=== PATIENT | female | born 1985 | race American Indian/Alaskan Native ===

== ENCOUNTER 2017-07-09 22:17 | Emergency (ER) | payer BC ==
[2017-07-10] MEDS ORDERED: LEVOPHED DRIP 4 MG/NS 250 ML 4 MG/250 ML BAG IV ONE (02:08)
[2017-07-10 02:26] LABS: Basophils % (Auto) 0.2 % (0.0-1.8); Eosinophils % (Auto) 0.7 % (0.0-4.3); Hematocrit 36.6 % (30.3-42.9); Hemoglobin 12.3 gm/dl (10.1-14.3); Mean Corpuscular HGB Conc 34 % (30-34); Mean Corpuscular Hemoglobin 28 pg (28-32); Mean Corpuscular Volume 84 fl (79-97); Platelet Count 273 K/mm3 (140-440); Red Blood Count 4.39 M/mm3 (3.65-5.03); Red Cell Distribution Width 13.9 % (13.2-15.2); White Blood Count 12.4 K/mm3 (4.5-11.0)
[2017-07-10 03:01] LABS: Alanine Aminotransferase 5 units/L (7-56); Albumin 3.6 g/dL (3.9-5); Alkaline Phosphatase 73 units/L (35-129); Anion Gap 16 mmol/L; BUN/Creatinine Ratio 17; Blood Urea Nitrogen 10 mg/dL (7-17); Calcium 9.2 mg/dL (8.4-10.2); Carbon Dioxide 24 mmol/L (22-30); Chloride 97.8 mmol/L (98-107); Glucose 87 mg/dL (65-100); Lipase 19 units/L (13-60); Potassium 4.1 mmol/L (3.6-5.0); Sodium 134 mmol/L (137-145); Total Protein 7.1 g/dL (6.3-8.2)
[2017-07-10 04:25] LABS: Bacteria,Urine 2+ /HPF (Negative); Bilirubin,Urine NEG (Negative); Blood,Urine MOD (Negative); Ketones,Urine TR mg/dL (Negative); Leukocyte Esterase,Urine LG (Negative); Mucus,Urine 1+ /HPF; Nitrite,Urine NEG (Negative); Protein,Urine <15 mg/dL mg/dL (Negative)
[2017-07-10 06:01] VITALS: BP 126/83
--- NOTE | 2017-07-10 10:37 | Event Note ---
Date: 07/10/17 no answer in wr
== END 2017-07-10 12:10 | disposition left against medical advice (07) ==
LOC: ED 22:17
DX: R10.9 Unspecified abdominal pain (principal); Z53.21 Procedure and treatment not carried out due to patient leaving prior to being seen by health care provider
CPT/HCPCS: 36415; 80053; 81001; 83690; 85025

== ENCOUNTER 2017-07-16 17:55 | Emergency (ER) | payer BC ==
[2017-07-16 18:37] LABS: Bilirubin,Urine NEG (Negative); Blood,Urine LG (Negative); Ketones,Urine TR mg/dL (Negative); Leukocyte Esterase,Urine NEG (Negative); Mucus,Urine FEW /HPF; Nitrite,Urine NEG (Negative); Urobilinogen,Urine < 2.0 mg/dL (<2.0)
[2017-07-16 18:51] LABS: Basophils % (Auto) 0.3 % (0.0-1.8); Eosinophils % (Auto) 0.6 % (0.0-4.3); Hematocrit 36.2 % (30.3-42.9); Hemoglobin 11.8 gm/dl (10.1-14.3); Mean Corpuscular HGB Conc 33 % (30-34); Mean Corpuscular Hemoglobin 27 pg (28-32); Mean Corpuscular Volume 84 fl (79-97); Platelet Count 282 K/mm3 (140-440); Red Blood Count 4.31 M/mm3 (3.65-5.03); Red Cell Distribution Width 14.1 % (13.2-15.2); White Blood Count 11.6 K/mm3 (4.5-11.0)
[2017-07-16 19:11] LABS: Alanine Aminotransferase 5 units/L (7-56); Albumin 3.6 g/dL (3.9-5); Albumin/Globulin Ratio 1.2 %; Alkaline Phosphatase 81 units/L (35-129); Anion Gap 20 mmol/L; BUN/Creatinine Ratio 20; Bilirubin,Total < 0.20 mg/dL (0.1-1.2); Blood Urea Nitrogen 10 mg/dL (7-17); Calcium 9.1 mg/dL (8.4-10.2); Carbon Dioxide 21 mmol/L (22-30); Chloride 98.8 mmol/L (98-107); Glucose 99 mg/dL (65-100); Potassium 3.5 mmol/L (3.6-5.0); Sodium 136 mmol/L (137-145); Total Protein 6.5 g/dL (6.3-8.2)
--- NOTE | 2017-07-16 21:24 | Emergency Department Report ---
HPI - General Chief Complaint: Vaginal Bleeding Time Seen by Provider: 07/16/17 21:08 - HPI HPI: This is a 31-year-old female presents to the emergency department with a complaint of a possible miscarriage. The patient is about 14 weeks . This morning she said that she had a very sharp but short pelvic pain. After went away she went to work but then felt like she was having some vaginal bleeding. She went to the bathroom and said that she passed a large amount of blood into the toilet and some clots. The bleeding has since slowed up but not yet resolved. However now she has some intermittent intense cramping pelvic pains. She is not currently have an OB/ DIGITAL ARTIST. She is taking vitamins. She took some Tylenol for her discomfort prior to presentation. With this she is with 2 previous abortions. No recent travel or sick contacts at home. She denies any fever, nausea, vomiting, back pain, dysuria or vaginal discharge. ED Past Medical Hx - Past Medical History Previous Medical History?: No - Surgical History Past Surgical History?: No - Social History Smoking Status: Never Smoker Substance Use Type: None - Medications Home Medications: Home Medications Medication Instructions Recorded Confirmed Last Taken Type Acetaminophen [Tylenol Extra 500 mg PO Q6H #40 tablet 06/20/17 Unknown Rx Strength] Nitrofurantoin Monohyd/M-Cryst 100 mg PO BID #14 capsule 06/20/17 Unknown Rx [Macrobid 100 mg Capsule] 21/Iron Fu/Folic Acid 1 each PO DAILY #60 tablet 06/20/17 Unknown Rx [ Complete Caplet] ED Review of Systems ROS: Stated complaint: 14WKS PREG POSS MISCARRIAGE Other details as noted in HPI Comment: All other systems reviewed and negative Constitutional: denies: chills, fever Eyes: denies: eye pain, eye discharge, vision change ENT: denies: ear pain, throat pain Respiratory: denies: cough, shortness of breath, wheezing Cardiovascular: denies: chest pain, palpitations Gastrointestinal: abdominal pain. denies: vomiting Genitourinary: other (vaginal bleeding). denies: urgency, dysuria, discharge Musculoskeletal: denies: back pain, joint swelling, arthralgia Skin: denies: rash, lesions Neurological: denies: headache, weakness, paresthesias Physical Exam - Physical Exam Vital Signs: Vital Signs 07/16/17 18:03 Temperature 98.3 F Pulse Rate 101 H Respiratory 18 Rate Blood Pressure 138/87 O2 Sat by Pulse 99 Oximetry Physical Exam: GENERAL: The patient is well-developed well-nourished. HENT: Normocephalic. Atraumatic. Patient has moist mucous membranes. EYES: Extraocular motions are intact. Pupils equal reactive to light bilaterally. NECK: Supple. Trachea is midline. CHEST/LUNGS: Clear to auscultation. There is no respiratory distress noted. HEART/CARDIOVASCULAR: Regular. There is no tachycardia. There is no murmur. ABDOMEN: Abdomen is soft. Unable to reproduce the patient's abdominal cramping to palpation of her abdomen. No guarding or rebound tenderness. Patient has normal bowel sounds. SKIN: There is no rash. There is no edema. There is no diaphoresis. NEURO: The patient is awake, alert, and oriented. The patient is cooperative. The patient has no focal neurologic deficits. The patient has normal speech. MUSCULOSKELETAL: There is no tenderness or deformity. There is no limitation range of motion. There is no evidence of acute injury. ED Course Vital Signs 07/16/17 18:03 Temperature 98.3 F Pulse Rate 101 H Respiratory 18 Rate Blood Pressure 138/87 O2 Sat by Pulse 99 Oximetry ED Medical Decision Making - Lab Data Result diagrams: 07/16/17 18:11 07/16/17 18:06 - Radiology Data Radiology results: report reviewed PROCEDURE: Obstetrical ultrasound. TECHNIQUE: Real-time transabdominal sonography of the uterus, placenta, amniotic fluid, adnexa, and fetus was performed with image documentation. Measurements were obtained to determine age/size. M-mode Doppler was used to document heartbeat. CPT 76893 HISTORY: , vaginal bleeding. COMPARISON: Obstetrical ultrasound 06/20/2017. FINDINGS: The uterus measures approximately 14.3 centimeters x 9.3 centimeters x 10.9 centimeters. The myometrium appears normal. There is an intrauterine gestational sac. There is a pole. Cardiac activity is documented at 165 beats per minute. The crown-rump length measurement is 7.8 centimeters. This indicates a menstrual age of 13 weeks 6 days. The estimated date of confinement is 01/15/2018. There are no signs of intrauterine hemorrhage. Both ovaries appear normal. There is no fluid in the cul-de-sac. IMPRESSION: Viable intrauterine with a menstrual age of 13 weeks 6 days. Transcribed By: MRM Dictated By: LEE JARRELL MD Electronically Authenticated By: LEE JARRELL MD Signed Date/Time: 07/16/171846 - Medical Decision Making This patient originally presented with concern for possible miscarriage as she suddenly had sharp pelvic pains, followed by vaginal bleeding, followed by pelvic/abdominal cramping. However her labs have been unremarkable. An ultrasound was done that shows a live intrauterine at about 14 weeks. All this together goes with the diagnosis of threatened miscarriage. The patient did later also told me that she has a history of 3 moderate-sized fibroids and these very well could be causing some of her discomfort and/or vaginal bleeding. The patient has a blood type of B- and therefore with the vaginal bleeding was given a RhoGAM injection. Her vital signs were stable throughout her ED course. After seeing the ultrasound results, we discussed the diagnosis of threatened miscarriage. She understands having pelvic rest. She's been encouraged to follow up with her DATA ANALYTICS DEVELOPER in the next few days. She will return to the ER with any worsening of the bleeding, pain or with any acute distress. - Differential Diagnosis , threatened miscarriage, spontaneous miscarriage, fibroids Critical Care Time: No Critical care attestation.: If time is entered above; I have spent that time in minutes in the direct care of this critically ill patient, excluding procedure time. ED Disposition Clinical Impression: Threatened miscarriage, Abdominal cramping Qualifiers: Weeks of gestation: 14 weeks Qualified Code(s): Z3A.14 - 14 weeks gestation of Disposition: DC-01 TO HOME OR SELFCARE Is pt being admited?: No Condition: Stable Instructions: (ED), Threatened Miscarriage (ED), Abdominal Pain (ED) , Rho(D) Immune Globulin (Injection) Additional Instructions: Please follow-up with your DATA ANALYTICS DEVELOPER in the next few days. Return to the emergency Department with any worsening of your symptoms, or any acute distress. Continue with your vitamins. You can take your Tylenol every 4 hours, using weight-based dosing, as needed for discomfort. Do not take any other medications that are not prescribed by a physician. Referrals: PRIMARY CAREMD [Primary Care Provider] - 3-5 Days [facility] [Provider Group] - 3-5 Days [facility] [Provider Group] - 3-5 Days [facility] [Provider Group] - 3-5 Days Time of Disposition: 01:30
--- NOTE | 2017-07-16 22:50 | Ultrasound Report ---
FINAL REPORT PROCEDURE: Obstetrical ultrasound. TECHNIQUE: Real-time transabdominal sonography of the uterus, placenta, amniotic fluid, adnexa, and fetus was performed with image documentation. Measurements were obtained to determine age/size. M-mode Doppler was used to document heartbeat. CPT 41043 HISTORY: , vaginal bleeding. COMPARISON: Obstetrical ultrasound 06/20/2017. FINDINGS: The uterus measures approximately 14.3 centimeters x 9.3 centimeters x 10.9 centimeters. The myometrium appears normal. There is an intrauterine gestational sac. There is a pole. Cardiac activity is documented at 165 beats per minute. The crown-rump length measurement is 7.8 centimeters. This indicates a menstrual age of 13 weeks 6 days. The estimated date of confinement is 01/15/2018. There are no signs of intrauterine hemorrhage. Both ovaries appear normal. There is no fluid in the cul-de-sac. IMPRESSION: Viable intrauterine with a menstrual age of 13 weeks 6 days.
[2017-07-17 02:00] VITALS: BP 135/84
== END 2017-07-17 02:01 | disposition home or self-care (01) ==
LOC: ED 17:55
DX: O20.0 Threatened abortion (principal); O26.891 Other specified pregnancy related conditions, first trimester; R10.2 Pelvic and perineal pain; Z3A.14 14 weeks gestation of pregnancy
CPT/HCPCS: 36415; 76801; 80053; 81001; 84702; 85025; 85461; 86850; 86900; 86901; 99284; J2790

== ENCOUNTER 2017-08-26 08:49 | Emergency (ER) | payer BC ==
[2017-08-26 09:34] LABS: Basophils # (Auto) 0.1 K/mm3 (0.0-0.1); Basophils % (Auto) 1.1 % (0.0-1.8); Eosinophils # (Auto) 0.1 K/mm3 (0.0-0.4); Eosinophils % (Auto) 0.9 % (0.0-4.3); Hematocrit 33.6 % (30.3-42.9); Hemoglobin 11.2 gm/dl (10.1-14.3); Lymphocytes # (Auto) 2.6 K/mm3 (1.2-5.4); Lymphocytes % (Auto) 19.1 % (13.4-35.0); Mean Corpuscular HGB Conc 33 % (30-34); Mean Corpuscular Hemoglobin 28 pg (28-32); Mean Corpuscular Volume 83 fl (79-97); Monocytes # (Auto) 1.1 K/mm3 (0.0-0.8); Monocytes % (Auto) 8.4 % (0.0-7.3); Platelet Count 263 K/mm3 (140-440); Red Blood Count 4.07 M/mm3 (3.65-5.03); Red Cell Distribution Width 13.9 % (13.2-15.2)
[2017-08-26 09:54] LABS: Alanine Aminotransferase 5 units/L (7-56); Albumin 3.3 g/dL (3.9-5); BUN/Creatinine Ratio 28; Blood Urea Nitrogen 11 mg/dL (7-17); Calcium 8.9 mg/dL (8.4-10.2); Hemolysis Index 4
[2017-08-26 10:17] LABS: Bacteria,Urine 1+ /HPF (Negative); Bilirubin,Urine NEG (Negative); Blood,Urine NEG (Negative); Color,Urine Yellow (Yellow); Mucus,Urine FEW /HPF; Nitrite,Urine NEG (Negative); Protein,Urine <15 mg/dL mg/dL (Negative); RBC,Urine < 1.0 /HPF (0.0-6.0)
[2017-08-26 14:11] VITALS: BP 110/66
== END 2017-08-26 19:00 | disposition left against medical advice (07) ==
LOC: ED 08:49
DX: M54.5 Low back pain (principal); Z53.21 Procedure and treatment not carried out due to patient leaving prior to being seen by health care provider
CPT/HCPCS: 36415; 80053; 81001; 84703; 85025

== ENCOUNTER 2017-11-03 12:28 | Emergency (ER) | payer MEDICAID, OTHER ==
[2017-11-03 13:00] VITALS: BP 129/72
--- NOTE | 2017-11-03 15:41 | Emergency Department Report ---
HPI - General Chief Complaint: Medical Clearance Time Seen by Provider: 11/03/17 14:41 - HPI HPI: Patient is a 32-year-old at 29 weeks 2 days of presents to ED survey for prophylaxis RhoGAM injection. Patient was sent by her [facility] [employer] Dr. Candelaria Villavicencio to get her RhoGAM here. Patient denies vaginal bleeding or leaking fluids. She reports good movement. She reports doing well with no problems. ED Past Medical Hx - Past Medical History Previous Medical History?: No - Surgical History Past Surgical History?: No - Social History Smoking Status: Never Smoker - Medications Home Medications: Home Medications Medication Instructions Recorded Confirmed Last Taken Type Acetaminophen [Tylenol Extra 500 mg PO Q6H #40 tablet 06/20/17 Unknown Rx Strength] Nitrofurantoin Monohyd/M-Cryst 100 mg PO BID #14 capsule 06/20/17 Unknown Rx [Macrobid 100 mg Capsule] 21/Iron Fu/Folic Acid 1 each PO DAILY #60 tablet 06/20/17 Unknown Rx [ Complete Caplet] ED Review of Systems ROS: Stated complaint: BLOODWORK/SHOT Other details as noted in HPI Constitutional: denies: chills, fever Eyes: denies: eye pain, eye discharge, vision change ENT: denies: ear pain, throat pain Respiratory: denies: cough, shortness of breath, wheezing Cardiovascular: denies: chest pain, palpitations Endocrine: no symptoms reported Gastrointestinal: denies: abdominal pain, nausea, diarrhea Genitourinary: denies: urgency, dysuria, discharge Musculoskeletal: denies: back pain, joint swelling, arthralgia Skin: denies: rash, lesions Neurological: denies: headache, weakness, paresthesias Psychiatric: denies: anxiety, depression Hematological/Lymphatic: denies: easy bleeding, easy bruising Physical Exam - Physical Exam Vital Signs: Vital Signs 11/03/17 12:55 Temperature 96.8 F L Pulse Rate 98 H Respiratory 16 Rate Blood Pressure 129/72 O2 Sat by Pulse 99 Oximetry Physical Exam: GENERAL: Alert and oriented x3, no apparent distress, Normal Gait, atraumatic. HEAD: Head is normocephalic and a-traumatic. LUNGS: Symetrical with respiration, No wheezing, no rales or crackles, CTAB. HEART: S1, S2 present, regular rate and rhythm without murmur, no rubs, no gallops. Non tender to palpation ABDOMEN: gravid, No organomegaly was noted,Positive bowel sounds, soft, and non- distended. Nontender to palpation on all Quadrants, NO CVA tenderness. heart tones at 140 bpm BACK: Full range of motion, no spinal tenderness, nontender to palpation. SKIN: Warm and dry, No lesions, No ulceration or induration present. ED Course Vital Signs 11/03/17 12:55 Temperature 96.8 F L Pulse Rate 98 H Respiratory 16 Rate Blood Pressure 129/72 O2 Sat by Pulse 99 Oximetry ED Medical Decision Making - Medical Decision Making 32-year-old female presents for RhoGAM administration ED course: Type and screen ordered. blood type B negative RhoGAM administered in the ED There was no complications. I discussed the patient to follow up with her [employer] [employer]. Critical care attestation.: If time is entered above; I have spent that time in minutes in the direct care of this critically ill patient, excluding procedure time. ED Disposition Clinical Impression: Encounter for prophylactic administration of RhoGAM Disposition: - TO HOME OR SELFCARE Is pt being admited?: No Does the pt Need Aspirin: No Condition: Stable Instructions: Rho(D) Immune Globulin (Injection) Additional Instructions: Follow-up with the private [employer] [employer] Make sure to follow up with the ob as discussed. Take all your medications as you've been prescribed. If you have any worsening symptoms or develop new symptoms please return to ED immediately. Referrals: PRIMARY CAREMD [Primary Care Provider] - 3-5 Days CANDELARIA VILLAVICENCIO MD [Staff Physician] - 3-5 Days Forms: Work/School Release Form(ED) Time of Disposition: 15:33
== END 2017-11-03 16:19 | disposition home or self-care (01) ==
LOC: ED 12:28
DX: Z29.13 Encounter for prophylactic Rho(D) immune globulin (principal)
CPT/HCPCS: 36415; 84703; 86850; 86900; 86901; 99283; J2790

== ENCOUNTER 2018-01-07 09:51 | Inpatient (IN) | payer OTHER ==
[2018-01-07] MEDS ORDERED: SUBLIMAZE ONE (10:17)
[2018-01-07] MEDS ORDERED: LACTATED RINGERS 1,000 ML ONE (10:18)
[2018-01-07] MEDS ORDERED: LACTATED RINGERS 1,000 ML IV SCH ×2 (11:00→12:00)
[2018-01-07] MEDS ORDERED: POLYCILLIN/NS 2 GM/100 ML 2 GM/100 ML BAG IV NR (11:00)
[2018-01-07] MEDS ORDERED: STADOL IV PRN (11:10)
[2018-01-07] MEDS ORDERED: ZOFRAN IV PRN ×2 (11:10→15:12)
[2018-01-07] MEDS ORDERED: NARCAN 0.4 MG/1 ML IV PRN (11:10)
[2018-01-07] MEDS ORDERED: ePHEDrine SULFATE IV PRN (11:10)
[2018-01-07] MEDS ORDERED: MINERAL OIL PO PRN (11:10)
[2018-01-07] MEDS ORDERED: BRETHINE SUB-Q PRN (11:10)
[2018-01-07] MEDS ORDERED: BRETHINE IVP PRN (11:10)
[2018-01-07] MEDS ORDERED: SUBLIMAZE IV PRN (11:10)
[2018-01-07 11:12] LABS: Hematocrit 29.1 % (30.3-42.9); Hemoglobin 9.1 gm/dl (10.1-14.3); Mean Corpuscular HGB Conc 31 % (30-34); Mean Corpuscular Volume 71 fl (79-97); Platelet Count 202 K/mm3 (140-440); Red Blood Count 4.11 M/mm3 (3.65-5.03); Red Cell Distribution Width 16.9 % (13.2-15.2)
[2018-01-07 11:15] LABS: Mean Corpuscular Hemoglobin 22 pg (28-32)
--- NOTE | 2018-01-07 11:27 | History and Physical Report ---
History of Present Illness Date of examination: 01/07/18 Date of admission: 01/07/18 09:53 Chief complaint: contractions History of present illness: Pt is a 32 year old -Armenian female CHUCHO 01/15/18 at 38w6d who presents with contractions and advanced cervical dilation of 5 cm. She denies vaginal bleeding or leakage of fluid. She has had care at [facility] since 25 wks complicated by late entry to care at 25 wks, morbid obesity, fibroid uterus, alpha thalassemia carrier, genital herpes without lesion or prodrome and Rh negative status. She is GBS unknown. She reports a slip and fall yesterday with no stomach contact and has had right hip and thigh pain since then. 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, herpes Family/Genetic History: cancer Social history: no significant social history - Obstetrical History Expected Date of Delivery: 01/15/18 Actual Gestation: 38 Week(s) 6 Day(s) : 5 Para: 2 Hx # Term Pregnancies: 2 Number of Pregnancies: 0 Spontaneous Abortions: 0 Induced : 2 Number of Living Children: 2 Medications and Allergies Allergies Allergy/AdvReac Type Severity Reaction Status Date / Time ibuprofen Allergy Angioedema Verified 07/16/17 18:02 Home Medications Medication Instructions Recorded Confirmed Last Taken Type Acetaminophen [Tylenol Extra 500 mg PO Q6H #40 tablet 06/20/17 Unknown Rx Strength] Nitrofurantoin Monohyd/M-Cryst 100 mg PO BID #14 capsule 06/20/17 Unknown Rx [Macrobid 100 mg Capsule] 21/Iron Fu/Folic Acid 1 each PO DAILY #60 tablet 06/20/17 Unknown Rx [ Complete Caplet] Active Meds: Active Medications Butorphanol Tartrate (Stadol) 2 mg IV Q2H PRN PRN Reason: Pain , Severe (7-10) Ephedrine Sulfate (Ephedrine Sulfate) 10 mg IV Q2M PRN PRN Reason: Hypotension Fentanyl (Sublimaze) 100 mcg IV ONCE ONE Stop: 01/07/18 11:31 Fentanyl (Sublimaze) 100 mcg IV Q2H PRN PRN Reason: Labor Pain Lactated Ringer's (Lactated Ringers) 1,000 mls @ 125 mls/hr IV DIRECT JOE Ampicillin Sodium (Polycillin/Ns 2 Gm/100 Ml) 2 gm in 100 mls @ 100 mls/hr IV ONCE NR Stop: 01/07/18 12:00 Ampicillin Sodium (Ampicillin/Ns 1 Gm/50 Ml) 1 gm in 50 mls @ 100 mls/hr IV Q4HR JOE; Protocol Lactated Ringer's (Lactated Ringers) 1,000 mls @ 125 mls/hr IV DIRECT JOE Oxytocin/Sodium Chloride (Pitocin/Ns 20 Unit/1000ml Drip) 20 units in 1,000 mls @ 125 mls/hr IV DIRECT JOE Oxytocin/Sodium Chloride (Pitocin/Ns 30 Unit/500ml) 30 units in 500 mls @ 4 mls /hr IV TITR JOE; Protocol Lidocaine (Xylocaine 2%) 20 ml INFILTRATI ONCE ONE Stop: 01/07/18 11:11 Mineral Oil (Mineral Oil) 30 ml PO QHS PRN PRN Reason: Constipation Naloxone HCl (Narcan 0.4 Mg/1 Ml) 0.1 mg IV Q2MIN PRN PRN Reason: Res Rate </= 8 or 02 SAT < 92% Ondansetron HCl (Zofran) 4 mg IV Q8H PRN PRN Reason: Nausea And Vomiting Terbutaline Sulfate (Brethine) 0.25 mg SUB-Q ONCE PRN PRN Reason: Hyperstimulation/Hypertonicity Terbutaline Sulfate (Brethine) 0.25 mg IVP ONCE PRN PRN Reason: Hyperstimulation/Hypertonicity Review of Systems All systems: negative - Vital Signs Vital signs: Vital Signs Temp Resp 97.2 F L 18 01/07/18 10:00 01/07/18 10:00 Temp Pulse Resp BP Pulse Ox 97.2 F L 84 18 108/64 99 01/07/18 10:00 01/07/18 11:18 01/07/18 10:00 01/07/18 11:14 01/07/18 11:18 - Physical Exam Breasts: Positive: deferred, mass Lungs: Positive: Clear to auscultation Abdomen: Positive: soft (obesem, gravid ) Uterus: Positive: enlarged (gravid ) Extremities: Positive: normal - Obstetrical FHR: auscultation normal Uterine Contraction Monitor Mode: External Cervical Dilatation: 8 Cervical Effacement Percentage: 90 station: -1 Uterine Contraction Pattern: Regular Uterine Tone Measurement Phase: Resting Uterine Contraction Intensity: Strong/Firm Results Result Diagrams: 01/07/18 10:15 Abnormal lab results 01/07/18 Range/Units 10:15 Hgb 9.1 L (10.1-14.3) gm/dl Hct 29.1 L (30.3-42.9) % MCV 71 L (79-97) fl MCH 22 L (28-32) pg RDW 16.9 H (13.2-15.2) % All other labs normal. Assessment and Plan A: IUP at 38w6d Active labor AROM- clear fluid Morbid Obesity Rh Negative Fibroid Uterus Alpha Thalassemia carrier GBS unknown P: Admit to labor and delivery GBS prophylaxis Routine intrapartum care
[2018-01-07] MEDS ORDERED: SUBLIMAZE IV ONE (11:30)
[2018-01-07] MEDS ORDERED: XYLOCAINE 2% INFILTRATI ONE (12:00)
[2018-01-07] MEDS ORDERED: PITOCin/NS 20 UNIT/1000ML DRIP 20 UNITS/1,000 ML BAG IV SCH ×2 (12:00→15:12)
[2018-01-07] MEDS ORDERED: PITOCin/NS 30 UNIT/500ML 30 UNITS/500 ML BAG IV SCH (12:00)
--- NOTE | 2018-01-07 12:49 | Procedure Note ---
OB Delivery Note - Delivery Date of Delivery: 01/07/18 Surgeon: SHANTHI CERON Estimated blood loss: other (400 mL) - Vaginal Delivery presentation: vertex Delivery position: OA Intrapartum events: PROM->1hr before delivery, mult.variable deceleratio Delivery induction: none Delivery augmentation: rupture of membranes, pitocin Delivery monitor: external FHT, external uterine Route of delivery: Delivery placenta: spontaneous Episiotomy: none Delivery laceration: 1st degree (left periurethral ) Anesthesia: intravenous Delivery comments: Pt progressed to complete/complete/0 and pushed to deliver a viable female over intact perineum via under IV anesthesia. Head delivered in direct OA position, followed by shoulders and body. placed on maternal abdomen and bulb suctioned. Cord clamped and cut. Cord blood collected. Placenta delivered spontaneously. Vagina and perineum explored. Left periurtheral noted to be well approximating and hemostatic. No repair needed. EBL 400 mL. - Infant A at 1 minute: 8 at 5 minutes: 9 Infant Gender: Female (3643g (8lb 1 oz) @ 1231 pm)
[2018-01-07] MEDS ORDERED: AMPICILLIN/NS 1 GM/50 ML 1 GM/50 ML BAG IV SCH (14:00)
[2018-01-07] MEDS ORDERED: PHENERGAN PO PRN (15:12)
[2018-01-07] MEDS ORDERED: SODIUM CHLORIDE FLUSH SYRINGE 10 ML IV NR (15:12)
[2018-01-07] MEDS ORDERED: MILK OF MAGNESIA PO PRN (15:12)
[2018-01-07] MEDS ORDERED: TUCKS PAD TP PRN (15:12)
[2018-01-07] MEDS ORDERED: DERMOPLAST TP PRN (15:12)
[2018-01-07] MEDS ORDERED: DULCOLAX PR PRN (15:12)
[2018-01-07] MEDS ORDERED: TYLENOL PO PRN (15:12)
[2018-01-07] MEDS ORDERED: BENADRYL PO PRN (15:12)
[2018-01-07] MEDS ORDERED: LANSINOH TP PRN ×2 (15:12)
[2018-01-07] MEDS ORDERED: PHENERGAN PR PRN (15:12)
[2018-01-07] MEDS: NORCO 5/325 PO PRN ×2 (15:37→20:27)
[2018-01-08] MEDS: FEOSOL PO SCH ×3 (00:02→22:00)
[2018-01-08] MEDS: NORCO 5/325 PO PRN ×5 (00:59→20:05)
[2018-01-08 01:01] LABS: Hematocrit 28.1 % (30.3-42.9); Hemoglobin 8.8 gm/dl (10.1-14.3)
--- NOTE | 2018-01-08 12:10 | Progress Note ---
Assessment and Plan A: PPD#1 s/p at term; Asymptomatic Anemia P: Routine care. Anticipate discharge tomorrow. Subjective - Subjective Date of service: 01/08/18 Principal diagnosis: s/p at term, Asymptomatic anemia Interval history: No overnight events. Patient reports: appetite normal, voiding normally, pain well controlled, ambulating normally, no dizzy ambulation [employer]: doing well Objective - Vital Signs Latest vital signs: Vital Signs Temp Pulse Resp BP BP Pulse Ox 01/08/18 07:48 71 98 01/08/18 06:51 18 01/08/18 05:58 18 01/08/18 01:47 18 01/08/18 00:59 18 01/08/18 00:48 98.5 F 81 18 105/69 01/07/18 21:27 18 01/07/18 20:50 97.9 F 100 H 18 116/69 01/07/18 20:27 18 01/07/18 17:10 98.3 F 82 20 122/72 97 01/07/18 17:05 98.3 F 73 20 119/65 119/65 97 01/07/18 15:37 18 01/07/18 14:55 98.6 F 66 18 115/78 01/07/18 14:00 68 122/78 01/07/18 13:45 69 124/90 01/07/18 13:30 75 119/64 01/07/18 13:15 73 118/60 01/07/18 13:00 71 128/57 01/07/18 12:57 67 137/63 01/07/18 12:34 76 97 01/07/18 12:32 77 92 01/07/18 12:29 73 98 01/07/18 12:27 77 92 01/07/18 12:24 70 96 01/07/18 12:21 77 92 01/07/18 12:19 72 94 01/07/18 12:16 60 129/61 86 01/07/18 12:14 73 94 Intake and Output 01/07/18 01/08/18 01/08/18 22:59 06:59 14:59 Intake Total 120 220 Output Total 700 300 Balance -580 -80 Intake: Intake, Free Water 120 220 Output: Urine 700 300 Void 700 300 Other: Total, Output Amount 400 300 # Voids Void 1 - Exam Breasts: Present: deferred Cardiovascular: Present: Regular rate Lungs: Present: Clear to auscultation Abdomen: Present: soft (obese ) Uterus: Present: fundal height at umbilicus Extremities: Present: normal - Labs Labs: Abnormal lab results 01/08/18 Range/Units 00:37 Hgb 8.8 L (10.1-14.3) gm/dl Hct 28.1 L (30.3-42.9) %
--- NOTE | 2018-01-08 12:15 | Discharge Summary ---
Providers - Providers Date of Admission: 01/07/18 09:53 Date of discharge: 01/08/18 Attending physician: SHANTHI CERON 01/07/18 15:12 Consult to Clothing Patternmaker [CONS] Routine Reason For Exam: assistance with , SNS Primary care physician: SHANTHI CERON Hospitalization Reason for admission: active labor Delivery: Procedure details: Please see delivery note. Episiotomy: none Laceration: 1st degree Other procedures: none complications: none Discharge diagnosis: IUP at term delivered baby: female Hospital course: Pt was admitted in active labor and went on to have an which she tolerated well. The remainder of her course was uncomplicated and she met discharge criteria on PPD#2. Condition at discharge: Stable Disposition: DC-01 TO HOME OR SELFCARE - Discharge Diagnoses (1) Term of female Status: Acute (2) Morbid obesity Status: Acute (3) Anemia Status: Acute Qualifiers: Anemia type: unspecified type Qualified Code(s): D64.9 - Anemia, unspecified Plan - Discharge Medications Prescriptions: Docusate Sodium [Colace] 100 mg PO BID PRN #60 capsule PRN Reason: Constipation Ferrous Sulfate [Feosol 325 MG tab] 325 mg PO TID #90 tablet HYDROcodone/APAP 5-325 [Boyd 5/325] 1 each PO Q6HR PRN #30 tablet PRN Reason: Pain - Provider Discharge Summary Activity: routine, no sex for 6 weeks, no heavy lifting 4 weeks, no strenuous exercise Diet: routine Instructions: routine Additional instructions: [] Smoking cessation referral if applicable(refer to patient education folder for contact #) [] Refer to [facility] Booklet Call your doctor immediately for: * Fever > 100.5 * Heavy vaginal bleeding ( >1 pad per hour) * Severe persistent headache * Shortness of breath * Reddened, hot, painful area to leg or breast * Drainage or odor from incision. * Keep incision clean and dry at all times and follow doctor's instructions regarding bathing/showering - Follow up plan Follow up: SHANTHI CERON MD [Primary Care Provider] - 02/06/18 (please schedule appt )
[2018-01-08] MEDS ORDERED: M-M-R II VACCINE SUB-Q ONE (12:50)
[2018-01-08] MEDS ORDERED: BOOSTRIX IM ONE (12:50)
[2018-01-09] MEDS: NORCO 5/325 PO PRN ×3 (00:02→08:01)
[2018-01-09] MEDS: FEOSOL PO SCH (10:05)
[2018-01-09 13:00] VITALS: BP 107/69
== END 2018-01-09 13:30 | disposition home or self-care (01) | DRG 774 ==
LOC: TRG 09:51 → LD 09:53 → OB 14:52
PROVIDERS: ADMIT Obstetrics & Gynecology; ATTEND Obstetrics & Gynecology
PROC: 10E0XZZ Delivery of Products of Conception, External Approach (ICD-10-PCS; principal; 2018-01-07)
PROC: 10907ZC Drainage of Amniotic Fluid, Therapeutic from Products of Conception, Via Natural or Artificial Opening (ICD-10-PCS; 2018-01-07)
PROC: 3E0234Z Introduction of Serum, Toxoid and Vaccine into Muscle, Percutaneous Approach (ICD-10-PCS; 2018-01-08)
DX: O99.214 Obesity complicating childbirth (principal); O98.32 Other infections with a predominantly sexual mode of transmission complicating childbirth; E66.01 Morbid (severe) obesity due to excess calories; D56.0 Alpha thalassemia; O34.13 Maternal care for benign tumor of corpus uteri, third trimester; Z37.0 Single live birth; Z79.899 Other long term (current) drug therapy; Z3A.38 38 weeks gestation of pregnancy; Z88.8 Allergy status to other drugs, medicaments and biological substances; Z23 Encounter for immunization; O71.82 Other specified trauma to perineum and vulva; O99.03 Anemia complicating the puerperium; D64.9 Anemia, unspecified; Z68.41 Body mass index [BMI] 40.0-44.9, adult; A60.00 Herpesviral infection of urogenital system, unspecified
CPT/HCPCS: 36415; 85014; 85018; 85027; 86592; 86850; 86900; 86901; J0290; J2590; J3010; J7120

== ENCOUNTER 2018-03-01 06:04 | Day surgery (SDC) | payer MEDICAID, OTHER ==
[2018-03-01] MEDS ORDERED: NACL BACTERIOSTATIC INFILTRATI ONE (06:42)
[2018-03-01] MEDS ORDERED: DILAUDID IV PRN (07:18)
[2018-03-01] MEDS ORDERED: ZOFRAN IV PRN ×2 (07:18→07:27)
[2018-03-01] MEDS ORDERED: TORADOL IV PRN (07:18)
[2018-03-01] MEDS ORDERED: TYLENOL PO PRN (07:18)
[2018-03-01] MEDS ORDERED: PERCOCET 5/325 PO PRN (07:18)
[2018-03-01] MEDS ORDERED: LACTATED RINGERS 1,000 ML ONE (07:19)
[2018-03-01] MEDS ORDERED: PEPCID IV ONE (07:21)
[2018-03-01] MEDS ORDERED: MARCAINE 0.5% INFILTRATI ONE ×2 (07:26→08:23)
--- NOTE | 2018-03-01 07:26 | Short Stay Summary ---
Short Stay Documentation Date of service: 03/01/18 Narrative H&P: 32y/o with undesired fertility. The patient has been counseled on other contraceptive options. She has elected for permanent sterilization. - History Principal diagnosis: undesired fertility Past Medical History: No medical history Past Surgical History: No surgical history Social history: single - Allergies and Medications Current Medications: Allergies ibuprofen Allergy (Verified 02/27/18 19:34) Angioedema NSAIDS (Non-Steroidal Anti-Inflamma Allergy (Verified 03/01/18 06:35) Anaphylaxis Home Medications Medication Instructions Recorded Confirmed Last Taken Type No Known Home Medications [No 02/27/18 02/27/18 Unknown History Reported Home Medications] Active Medications Acetaminophen (Tylenol) 650 mg PO ONCE PRN PRN Reason: Pain, Mild (1-3) - Physical exam General appearance: no acute distress Integumentary: no rash HEENT: Atraumatic Lungs: Clear to auscultation Breasts: deferred Heart: Regular rate Gastrointestinal: normal Female Genitourinary: deferred Rectal Exam: deferred Extremities: no ischemia Neurological: Normal gait - Brief post op/procedure progress note Date of procedure: 03/01/18 Pre-op diagnosis: undesired fertility Post-op diagnosis: same Procedure: Laparoscopic bilateral tubal ligation Anesthesia: SHAHIDA Surgeon: AYANA ALBERTO Estimated blood loss: none Pathology: none Condition: stable - Hospital course Hospital course: The patient was admitted to day surgery and underwent a laparoscopic bilateral tubal ligation. Please see operative note for details of surgery. The patient was discharged home when she met discharge criteria. - Disposition Condition at discharge: Good Disposition: DC-01 TO HOME OR SELFCARE Short Stay Discharge Plan Activity: other (pelvic rest for 1 week) Diet: regular Additional Instructions: Follow-up is not required Follow-up as needed Prescriptions: oxyCODONE /ACETAMINOPHEN [Percocet 5/325] 1 tab PO Q6HR PRN #30 tablet PRN Reason: Pain
--- NOTE | 2018-03-01 07:27 | Anesthesia Day of Surgery ---
Anesthesia Day of Surgery - Day of Surgery Patient Examined: Yes Patient H&P Reviewed: Yes Patient is NPO: Yes
--- NOTE | 2018-03-01 07:27 | Anesthesia Consultation ---
Anesthesia Consult and Med Hx Date of service: 03/01/18 - Airway Anesthetic Teeth Evaluation: Good ROM Head & Neck: Adequate Mental/Hyoid Distance: Adequate Mallampati Class: Class III Intubation Access Assessment: Probably Good - Pulmonary Exam CTA: Yes - Cardiac Exam Cardiac Exam: RRR - Pre-Operative Health Status ASA Pre-Surgery Classification: ASA1 - Pulmonary Hx Asthma: No COPD: No Hx Pneumonia: No - Cardiovascular System Hx Hypertension: No - Central Nervous System Hx Seizures: No Hx Psychiatric Problems: No - Endocrine Hx Renal Disease: No Hx End Stage Renal Disease: No Hx Hypothyroidism: No Hx Hyperthyroidism: No - Hematic Hx Anemia: Yes (With ) Hx Sickle Cell Disease: No - Other Systems Hx Alcohol Use: No Hx Cancer: No
[2018-03-01] MEDS ORDERED: DIPRIVAN 10 MG/ML IV ONE (07:40)
[2018-03-01] MEDS ORDERED: SUBLIMAZE ONE (07:40)
[2018-03-01] MEDS ORDERED: QUELICIN ONE ×2 (07:41→08:02)
[2018-03-01] MEDS ORDERED: LACTATED RINGERS 1,000 ML IV SCH ×3 (08:00)
[2018-03-01] MEDS ORDERED: TRANSDERM-SCOP TD NR (08:00)
[2018-03-01] MEDS ORDERED: PEPCID IV NR (08:00)
[2018-03-01] MEDS ORDERED: VERSED IV NR ×2 (08:00)
[2018-03-01] MEDS ORDERED: ROBINUL ONE (08:02)
[2018-03-01] MEDS ORDERED: DECADRON ONE (08:02)
[2018-03-01] MEDS ORDERED: ZOFRAN ONE (08:02)
[2018-03-01] MEDS ORDERED: BLOXIVERZ ONE (08:02)
[2018-03-01] MEDS ORDERED: ZEMURON IV ONE ×3 (08:02)
[2018-03-01] MEDS ORDERED: NACL 0.9% IR ONE (08:24)
--- NOTE | 2018-03-01 08:29 | Operative Report ---
Operative Report Operative Report: Date of surgery: 03/01/2018 Preoperative diagnosis: Unwanted fertility Postoperative diagnosis: Same as above Procedure: Laparoscopic bilateral tubal ligation with Filshie clips Surgeon: Aleida Alvarez M.D. Anesthesia: General endotracheal anesthesia Estimated blood loss: Minimal Findings: Normal uterus tubes and ovaries Indication: 32-year-old with undesired fertility. The patient has elected for permanent sterilization Procedure: The patient was taken to the operating room and given general endotracheal anesthesia without complication. The patient is prepped and draped in a normal sterile fashion. A bivalve speculum was placed in the patient's vagina and a single-tooth tenaculum was placed on the anterior lip of the cervix .A uterine acorn manipulato rwas placed, and the bivalve speculum was then removed. Attention was then turned to the patient's abdomen where a 5 mm infraumbilical skin incision was then made. A Veress needle was placed and peritoneal entry was verified water-filled syringe. Insufflation of the peritoneal cavity was performed with CO2 gas. A 5 mm trocar was placed and the laparoscope was then inserted. The patient was then placed in Trendelenburg. A 7 mm suprapubic skin incision was then made. Under direct visualization a 7 mm trocar was then placed. General survey of the patient's abdomen revealed normal uterus tubes and ovaries. The fallopian tube was then followed out to the fimbriated end. A Filshie clip was placed, on the ampullary portion of the tube. An additional clamp was placed on the same tube by patient request. This was performed on the contralateral side as well. The 7 mm trocar was then removed. The pneumoperitoneum was then released. The 5 mm trocar laparoscope was then removed. The skin incisions were then closed with 4-0 Monocryl. The incisions were injected with quarter percent Marcaine. Dressings were applied to the incision. The vaginal instruments were then removed atraumatically. Then successfully extubated and taken to the recovery room. All sponge laps and needle counts were correct 2.
[2018-03-01] MEDS: DILAUDID IV PRN ×3 (08:35→08:55)
[2018-03-01] MEDS ORDERED: PERCOCET 5/325 PO NR (10:00)
[2018-03-01] MEDS ORDERED: DILAUDID IV SCH (11:15)
[2018-03-01 14:20] VITALS: BP 115/58
== END 2018-03-01 13:10 | disposition home or self-care (01) ==
LOC: OR 06:04
PROVIDERS: ATTEND Obstetrics & Gynecology
DX: Z30.2 Encounter for sterilization (principal); E66.01 Morbid (severe) obesity due to excess calories; Z68.37 Body mass index [BMI] 37.0-37.9, adult; Z88.6 Allergy status to analgesic agent; Z98.890 Other specified postprocedural states
CPT/HCPCS: 58670; 81025; J0330; J1100; J1170; J2250; J2405; J2704; J2710; J3010; J7120